=== PATIENT | male | born 2005 | race African-American/Black ===

== ENCOUNTER 2024-02-03 01:58 | Emergency (ER) | payer SELFPAY ==
[2024-02-03 02:06] VITALS: BP 121/58; PULSE 80; RESP 20; TEMP 37.1; O2SAT 97; BMI 21.6
[2024-02-03 02:50] LABS: MANUAL DIFF FLAG NO
[2024-02-03 02:52] LABS: Basophils Percent Auto 0.4 % (0-2); Eosinophils Percent Auto 0.1 % (0-4); Hematocrit 39.4 % (42.0-52.0); Hemoglobin 14.1 g/dl (14.0-18.0); Imm Gran Abs Auto 0.03 X10*3/uL (0.00-0.03); Imm Gran Pct Auto 0.4 % (0.0-0.4); Lymphocytes Absolute Auto 0.4 X10*3/uL (1.2-4.9); Lymphocytes Percent Auto 4.2 % (20-40); Mean Corpuscular HGB Conc 35.8 g/dl (31.0-36.0); Mean Corpuscular Hemoglobin 32.2 pg (27.0-33.0); Mean Platelet Volume 9.2 fL (9.4-12.4); Monocytes Absolute Auto 0.9 X10*3/uL (0.1-1.2); Monocytes Percent Auto 10.9 % (2-11); Neutrophils Absolute Auto 7.2 x10*3/uL (2.0-8.3); Platelet Count 206 X10*3/uL (160-400); Red Blood Count 4.38 X10*6/uL (4.60-5.80); Red Cell Distribution Width 12.2 % (11.0-16.0); White Blood Count 8.5 X10*3/uL (4.8-10.8)
--- NOTE | 2024-02-03 02:58 | PC.NURSE ---
Patient presents to ED from home for evaluation of diffuse abdominal pain 10/10 on 0/10 pain scale, nausea, 3 episodes of vomiting since 06:00 pm last night after eating. Patient changed into a hospital attire, 230 G IV line established in [facility], labs drawn and sent to lab. Patient oriented to ED room, call thakur placed within patient's reach.
[2024-02-03 03:05] LABS: Alanine Aminotransferase 11 U/L (0-40); Albumin Level 4.8 g/dL (3.5-5.0); Alkaline Phosphatase 50 U/L (39-117); Anion Gap 16 (12-20); Aspartate Amino Transferase 24 U/L (5-37); Bilirubin Total 0.8 mg/dL (0.0-1.0); Blood Urea Nitrogen 11 mg/dL (9-16); Calcium 9.8 mg/dL (8.4-10.2); Carbon Dioxide 24 mmol/L (22-29); Chloride 102 mmol/L (96-108); Creatinine Clr Calc Pharmacy 108.4; Estimated Glomerular Filt Rate > 60; Glucose Random 102 mg/dL (60-115); Lipase 11 U/L (8-78); Potassium 3.8 mmol/L (3.3-5.1); Sodium 138 mmol/L (135-145); Total Protein 7.3 g/dL (6.5-8.0)
[2024-02-03 03:32] LABS: Influenza A PCR NEGATIVE (Negative); Influenza B PCR NEGATIVE (Negative); Resp Syncy Virus RNA Qual PCR NEGATIVE (Negative); SARS COV2 PCR INHOUSE POSITIVE (Negative)
--- NOTE | 2024-02-03 05:26 | ED_ITS ---
HPI - General Adult General Chief complaint: General Medical Stated complaint: food poisoning? vomiting Time Seen by Provider: 02/03/24 05:26 History of Present Illness ED Provider: Yemi COMER narrative: the patient is a 18-year-old male who is from [place], [place]. He is currently involved withg a residential work program, [employer], which is housed on the campus of the [facility]. He comes to the emergency room because he became ill yesterday afternoon. Symptoms again with nausea and vomiting. Also abdominal pain and headache. Also a lot of body aches and chills. Symptoms began at around 18:00 earlier this evening. The patient has no significant past medical history. He is on no medications. He says that he has received 2 COVID vaccines in the past but none recently. Patient has had nausea and vomiting but no diarrhea. He reports the abdominal pain is generalized pain that does not localize to the right lower quadrant. The patient reports that another participant in his program recently tested positive for COVID. Related Data Allergies Allergy/AdvReac Type Severity Reaction Status Date / Time No Known Allergies Allergy Verified 02/03/24 02:09 Review of Systems 2 Review of Systems: Yes all other systems are reviewed and are negative [facility] Social History Social History Alcohol intake: never Smoked in Last 30 Days: No Substance Use Type: Marijuana Substance Use Frequency: Occasionally Advance Directives: No Advance Directives Information Provided: Yes Physical Exam ED Vital Signs: Vital Signs - 24 hr 02/03/24 02:06 02/03/24 05:39 Temperature 98.7 F 98.7 F Pulse Rate 80 69 Respiratory Rate 20 16 Blood Pressure 121/58 L 119/60 Pulse Oximetry 97 98 Oxygen Delivery Method Room Air Room Air BMI result Body Mass Index 21.6 Const Other: The patient is awake and alert. He has the appearance of a healthy and athletic 18-year-old. He did not appear in acute distress or discomfort. HENMT Head: Yes normal to inspection Face and sinus: Yes normal facial exam Mouth: Normal oral and palatal mucosa present Eyes General: appearance normal, both eyes and all related structures Conjunctivae: conjunctivae normal Pupils: Equal, round and reactive pupils present EOM: EOMs intact bilaterally Neck Neck: Yes full ROM, Yes no lymphadenopathy and Yes supple Resp Effort & Inspection: normal respiratory effort Auscultation: clear to auscultation bilaterally Cardio Rate: regular rate Rhythm: regular rhythm Heart sounds: S1 normal heart sound present and S2 normal heart sound present GI Other: the abdomen is flat, soft, and nontender. I could press quite deeply into the right lower quadrant without eliciting any tenderness. Skin Other: Skin is dry and unremarkable Neuro Other: the patient is awake and alert with normal mental status. Cranial nerves are grossly intact. He moves extremities normally and seems neurologically intact. Cranial nerves: Yes Equal, round and reactive pupils present Extrem Other: No peripheral edema Medications Administered Discontinued Medications Generic Name Dose Route Start Last Admin Trade Name Gareth PRN Reason Stop Dose Admin Acetaminophen 975 mg 02/03/24 06:42 02/03/24 07:13 Acetaminophen 325 Mg Tablet PO 02/03/24 06:43 975 mg ONCE ONE Administration Ketorolac Tromethamine 10 mg 02/03/24 04:56 02/03/24 05:37 Ketorolac Tromethamine 15 Mg/Ml Vial IVPUSH 02/03/24 04:57 10 mg ONCE ONE Administration Ondansetron HCl 4 mg 02/03/24 04:56 02/03/24 05:36 Ondansetron Hcl 4 Mg/2 Ml Vial IVPUSH 02/03/24 04:57 4 mg ONCE ONE Administration Medical Decision Making Medical Decision Making MDM Narrative: patient is a 18-year-old who presents with abdominal pain, nausea and vomiting. He also complains of a headache and generalized body aches. He has testing positive for COVID today. I feel his physical exam is not suggestive of any other process such as appendicitis. He was treated symptomatically with ketorolac and ondansetron. He will be discharged to be symptomatically treated for COVID. We contacted the [employer] and they agree that he can return to their program. The patient was then discharged. He should return if worse. Lab Data 02/03/24 02:46 02/03/24 02:46 Labs: Lab Results 02/03/24 Range/Units 02:46 WBC 8.5 (4.8-10.8) X10*3/uL RBC 4.38 L (4.60-5.80) X10*6/uL Hgb 14.1 (14.0-18.0) g/dl Hct 39.4 L (42.0-52.0) % MCV 90.0 (80.0-98.0) fL MCH 32.2 (27.0-33.0) pg MCHC 35.8 (31.0-36.0) g/dl RDW 12.2 (11.0-16.0) % Plt Count 206 (160-400) X10*3/uL MPV 9.2 L (9.4-12.4) fL Immature Gran % (Auto) 0.4 (0.0-0.4) % Neut % (Auto) 84.0 H (45-73) % Lymph % (Auto) 4.2 L (20-40) % [place] % (Auto) 10.9 (2-11) % Eos % (Auto) 0.1 (0-4) % Baso % (Auto) 0.4 (0-2) % Lymph # (Auto) 0.4 L (1.2-4.9) X10*3/uL [place] # (Auto) 0.9 (0.1-1.2) X10*3/uL Eos # (Auto) 0.0 (0.0-0.4) X10*3/uL Baso # (Auto) 0.0 (0.0-0.2) X10*3/uL Abs Immat Gran (auto) 0.03 (0.00-0.03) X10*3/uL Absolute Neuts (auto) 7.2 (2.0-8.3) x10*3/uL Absolute Nucleated RBC 0.000 (0.0-0.012) X10*3/uL Nucleated RBC % (auto) 0.0 (0.0-0.2) /100WBC Sodium 138 (135-145) mmol/L Potassium 3.8 (3.3-5.1) mmol/L Chloride 102 (96-108) mmol/L Carbon Dioxide 24 (22-29) mmol/L Anion Gap 16 (12-20) BUN 11 (9-16) mg/dL Creatinine 1.02 (0.5-1.4) mg/dL Estim Creat Clear Calc 108.4 Estimated GFR > 60 Random Glucose 102 (60-115) mg/dL Calcium 9.8 (8.4-10.2) mg/dL Total Bilirubin 0.8 (0.0-1.0) mg/dL AST 24 (5-37) U/L ALT 11 (0-40) U/L Alkaline Phosphatase 50 (39-117) U/L Total Protein 7.3 (6.5-8.0) g/dL Albumin 4.8 (3.5-5.0) g/dL Lipase 11 (8-78) U/L Influenza Type A (PCR) NEGATIVE (Negative) Influenza Type B (PCR) NEGATIVE (Negative) RSV RNA Qual (PCR) NEGATIVE (Negative) SARS-CoV-2 RNA (RT-PCR) POSITIVE A (Negative) Discharge Plan Discharge Clinical Impression: COVID, Abdominal pain with vomiting, Headache Patient Disposition: Home, Self-Care Additional Instructions: You tested positive for COVID today. I suspect that your other symptoms are probably related to this COVID infection. Please plan on resting and taking it easy for the next few days. You may use ibuprofen and acetaminophen as needed for discomfort. Try to drink lot of fluids. Return to the emergency room for another evaluation if you feel significantly worse, especially if you have worsening abdominal pain. Stand Alone Forms: Work/School Release Interventions: ED Discharge Assessment Last Done: 02/03/24 07:17 Discharge Date/Time: 02/03/24 07:18 Print Language: Vincentian
[2024-02-03] MEDS: ondansetron HCL 4 MG/2 ML VIAL IVPUSH (05:36)
[2024-02-03] MEDS: Ketorolac Tromethamine 15 MG/ML VIAL 10 MG IVPUSH (05:37)
[2024-02-03 05:39] VITALS: BP 119/60; PULSE 69; RESP 16; TEMP 37.1; O2SAT 98
--- NOTE | 2024-02-03 05:53 | PC.NURSE ---
RN spoke to security named Giselle from [employer] to make her aware of the pt's status and to ensure return is an option due to living quarters and patient's COVID+ status. Per Giselle she will make the director of consumer affairs medical team aware, she requested that the pt be sent back with all paperwork and restrictions/recommendations adding that they will provide the patient with a ride back. They can be reached [phone] (choose security option) when the pt is ready for discharge
[2024-02-03] MEDS: Acetaminophen 325 MG TABLET 975 MG PO (07:13)
[2024-02-03 07:17] VITALS: BP 120/63; PULSE 64; RESP 16; TEMP 36.7; O2SAT 97
== END 2024-02-03 07:18 | disposition home or self-care (01) ==
PROVIDERS: Emergency Provider Emergency Medicine
DX: U07.1 COVID-19 (principal); R10.9 Unspecified abdominal pain; R51.9 Headache, unspecified; R11.2 Nausea with vomiting, unspecified
CPT/HCPCS: 0241U; 36415; 80053; 83690; 85025; 96374; 96375; 99284; J1885; J2405

== ENCOUNTER 2024-03-22 04:43 | Emergency (ER) | payer MEDICAID, SELFPAY ==
--- NOTE | ~2024-03-22 | CT_ITS ---
CLINICAL HISTORY: abdominal pain CT abdomen and pelvis with contrast Comparison: CT - CT ABDOMEN PELVIS W IV CON - 03/22/24 07:58 EST Findings: The lung bases are clear. There is focal fatty infiltration adjacent to the falciform ligament. Subcentimeter right hepatic hypodensity is too small to characterize. The gallbladder, pancreas, spleen, bilateral adrenal glands, and bilateral kidneys appear within normal limits. Contrast is seen within bilateral renal collecting systems. There is no evidence of bowel obstruction. The appendix appears normal. There is no pneumoperitoneum or ascites. Small fat containing umbilical hernia is present. Pelvic contents unremarkable. No acute fracture. IMPRESSION: No acute abdominopelvic abnormality is identified. This document has been electronically signed by: Ethan Crystal on 03/22/2024 08:58:23
[2024-03-22 04:50] VITALS: BP 144/81; PULSE 79; RESP 18; TEMP 36.9; O2SAT 99; BMI 20.5
[2024-03-22 06:03] LABS: Basophils Percent Auto 0.3 % (0-2); Eosinophils Absolute Auto 0.1 X10*3/uL (0.0-0.4); Eosinophils Percent Auto 0.7 % (0-4); Hematocrit 41.6 % (42.0-52.0); Hemoglobin 14.9 g/dl (14.0-18.0); Imm Gran Abs Auto 0.03 X10*3/uL (0.00-0.03); Imm Gran Pct Auto 0.3 % (0.0-0.4); Lymphocytes Absolute Auto 0.5 X10*3/uL (1.2-4.9); Lymphocytes Percent Auto 5.3 % (20-40); MANUAL DIFF FLAG NO; Mean Corpuscular HGB Conc 35.8 g/dl (31.0-36.0); Mean Corpuscular Hemoglobin 31.7 pg (27.0-33.0); Mean Corpuscular Volume 88.5 fL (80.0-98.0); Monocytes Absolute Auto 0.4 X10*3/uL (0.1-1.2); Monocytes Percent Auto 3.7 % (2-11); Neutrophils Absolute Auto 8.6 x10*3/uL (2.0-8.3); Neutrophils Percent Auto 89.7 % (45-73); Platelet Count 253 X10*3/uL (160-400); Red Cell Distribution Width 12.3 % (11.0-16.0); White Blood Count 9.6 X10*3/uL (4.8-10.8)
[2024-03-22 06:21] LABS: Alanine Aminotransferase 24 U/L (0-40); Albumin Level 4.7 g/dL (3.5-5.0); Alkaline Phosphatase 57 U/L (39-117); Anion Gap 11 (12-20); Aspartate Amino Transferase 65 U/L (5-37); Bilirubin Total 0.8 mg/dL (0.0-1.0); Blood Urea Nitrogen 11 mg/dL (9-16); Calcium 9.4 mg/dL (8.4-10.2); Carbon Dioxide 23 mmol/L (22-29); Chloride 110 mmol/L (96-108); Creatinine Clr Calc Pharmacy 117.7; Estimated Glomerular Filt Rate > 60; Glucose Random 77 mg/dL (60-115); Potassium 3.9 mmol/L (3.3-5.1); Sodium 140 mmol/L (135-145); Total Protein 7.3 g/dL (6.5-8.0)
[2024-03-22 06:43] LABS: Influenza A PCR NEGATIVE (Negative); Influenza B PCR NEGATIVE (Negative); Resp Syncy Virus RNA Qual PCR NEGATIVE (Negative); SARS COV2 PCR INHOUSE NEGATIVE (Negative)
--- NOTE | 2024-03-22 07:24 | ED_ITS ---
HPI - Abdominal Pain General Chief Complaint: Abdominal Pain Stated Complaint: stomach pain, n/v Time Seen by Provider: 03/22/24 07:20 Source: patient Limitations: no limitations History of Present Illness HPI narrative: This is a 18 years old the patient with no significant past medical history here with a chief complain of abdominal pain pain is localized in the upper abdomen without radiation he has also nausea vomiting and diarrhea. He has a that he never had any abdominal surgery before. Denies also any fever. He has pain is improving at this time MD elicited complaint: abdominal pain Pertinent past history: none Onset (ago): day(s) (1) Pain Consistency: now resolved Location: epigastric Severity: mild Quality: cramping Radiation: none Migration to: no migration Exacerbating factors: nothing Relieving factors: nothing Related Data Previous Rx's ?Medication ?Instructions ?Recorded omeprazole magnesium 10 mg oral 20 mg PO DAILY #30 ea 03/22/24 suspension,delayed release (Prilosec) ondansetron 4 mg disintegrating 4 mg PO Q8H 4 days #12 tabs 03/22/24 tablet Allergies Allergy/AdvReac Type Severity Reaction Status Date / Time No Known Allergies Allergy Verified 03/22/24 04:54 Review of Systems Reports system reviewed and no additional complaints, except as documented Gastrointestinal: Reports no additional gastrointestinal complaints REPLACED BY [facility] Past Medical History REPLACED BY [facility] Narrative: demies Social History Social History Alcohol intake: never Substance Use Type: Marijuana Advance Directives: No Advance Directives Information Provided: Yes Do you have a plan to hurt others: No Plan Physical Exam ED Vital Signs: Vital Signs - 24 hr 03/22/24 04:50 03/22/24 07:44 Temperature 98.5 F 98.5 F Pulse Rate 79 77 Respiratory Rate 18 18 Blood Pressure 144/81 H 131/63 Pulse Oximetry 99 95 Oxygen Delivery Method Room Air Room Air BMI result Body Mass Index 20.5 He looks well no distress not toxic appearing Const Orientation/consciousness: patient oriented x3 HENMT Head: Yes normal to inspection Ears: hearing grossly normal bilaterally Face and sinus: Yes normal facial exam Mouth: Normal oral and palatal mucosa present Throat: Yes posterior oropharynx normal Neck Neck: Yes normal visual inspection, Yes full ROM and Yes no lymphadenopathy Chest Chest palpation & inspection: normal inspection of the chest Resp Effort & Inspection: normal respiratory effort Auscultation: clear to auscultation bilaterally Cardio Jugular venous distension: no JVD Rate: regular rate Rhythm: regular rhythm GI Inspection: Yes normal to inspection Palpation (GI): Soft to palpation, not firm, nontender and no guarding Auscultation: normal bowel sounds Skin General skin exam: no rashes or lesions noted, elasticity normal and turgor normal Lesions: no lesions Rashes: no rashes Wounds: no wounds Neuro General: patient oriented x3 Course Reevaluation(s) Reevaluation #1: On re-examination is feeling much better his labs within normal limits CT scan of the abdomen is normal anticipate discharge Time: 10:12 Medical Decision Making Medical Decision Making [facility] Narrative: Patient presented to the emergency department with abdominal pain we will obtain lab work Differential Diagnosis Differential Diagnoses: The differential diagnosis associated with the presentation includes Differential diagnosis include peptic ulcer disease/ pancreatitis/ gastric Admission/Observation Consideration of admission/observation: Escalation of care including admission/observation considered Lab Data MDM Lab Attestation statement: I reviewed the patient's lab results. 03/22/24 05:57 03/22/24 05:57 Labs: Lab Results 03/22/24 Range/Units 05:57 WBC 9.6 (4.8-10.8) X10*3/uL RBC 4.70 (4.60-5.80) X10*6/uL Hgb 14.9 (14.0-18.0) g/dl Hct 41.6 L (42.0-52.0) % MCV 88.5 (80.0-98.0) fL MCH 31.7 (27.0-33.0) pg MCHC 35.8 (31.0-36.0) g/dl RDW 12.3 (11.0-16.0) % Plt Count 253 (160-400) X10*3/uL MPV 10.0 (9.4-12.4) fL Immature Gran % (Auto) 0.3 (0.0-0.4) % Neut % (Auto) 89.7 H (45-73) % Lymph % (Auto) 5.3 L (20-40) % [place] % (Auto) 3.7 (2-11) % Eos % (Auto) 0.7 (0-4) % Baso % (Auto) 0.3 (0-2) % Lymph # (Auto) 0.5 L (1.2-4.9) X10*3/uL [place] # (Auto) 0.4 (0.1-1.2) X10*3/uL Eos # (Auto) 0.1 (0.0-0.4) X10*3/uL Baso # (Auto) 0.0 (0.0-0.2) X10*3/uL Abs Immat Gran (auto) 0.03 (0.00-0.03) X10*3/uL Absolute Neuts (auto) 8.6 H (2.0-8.3) x10*3/uL Absolute Nucleated RBC 0.000 (0.0-0.012) X10*3/uL Nucleated RBC % (auto) 0.0 (0.0-0.2) /100WBC Sodium 140 (135-145) mmol/L Potassium 3.9 (3.3-5.1) mmol/L Chloride 110 H (96-108) mmol/L Carbon Dioxide 23 (22-29) mmol/L Anion Gap 11 L (12-20) BUN 11 (9-16) mg/dL Creatinine 0.89 (0.5-1.4) mg/dL Estim Creat Clear Calc 117.7 Estimated GFR > 60 Random Glucose 77 (60-115) mg/dL Calcium 9.4 (8.4-10.2) mg/dL Total Bilirubin 0.8 (0.0-1.0) mg/dL AST 65 H (5-37) U/L ALT 24 (0-40) U/L Alkaline Phosphatase 57 (39-117) U/L Total Protein 7.3 (6.5-8.0) g/dL Albumin 4.7 (3.5-5.0) g/dL Lipase 15 (8-78) U/L Influenza Type A (PCR) NEGATIVE (Negative) Influenza Type B (PCR) NEGATIVE (Negative) RSV RNA Qual (PCR) NEGATIVE (Negative) SARS-CoV-2 RNA (RT-PCR) NEGATIVE (Negative) Radiology Impression Discussion of test interpretation with radiology: I have reviewed the radiologist's reading. Medications Administered Discontinued Medications Generic Name Dose Route Start Last Admin Trade Name Freq PRN Reason Stop Dose Admin Sodium Chloride 1,000 mls @ 999 mls/hr 03/22/24 07:30 03/22/24 08:56 Ns IVCONT 03/22/24 08:30 Infused .Q1H1M NATACHA Infusion Iohexol 100 ml 03/22/24 08:39 03/22/24 08:39 Iohexol 350 Mg/Ml 100 Ml Infus..Btl IV 03/22/24 08:40 85 ml ONCE ONE Administration Metoclopramide HCl 10 mg 03/22/24 07:23 03/22/24 07:42 Metoclopramide Hcl 10 Mg/2 Ml Vial IVPUSH 03/22/24 07:24 10 mg ONCE ONE Administration Pantoprazole Sodium 40 mg 03/22/24 07:23 03/22/24 07:42 Pantoprazole Sodium 40 Mg/10 Ml Vial IVPUSH 03/22/24 07:24 40 mg ONCE ONE Administration Discharge Plan Discharge Clinical Impression: Abdominal pain Qualifiers: Abdominal location: generalized Qualified Code(s): R10.84 - Generalized abdominal pain Patient Disposition: Home, Self-Care Instructions: Abdominal Pain (ED) Additional Instructions: Stay on liquid diet for 24 hour, take Prilosec as directed also Zofran as needed for nausea, return to the emergency room if you feeling worse any concern Prescriptions: New ondansetron 4 mg tablet,disintegrating 4 mg PO Q8H 4 Days Qty: 12 0RF Prilosec 10 mg susp,delayed release for recon 20 mg PO DAILY Qty: 30 0RF Print Language: Armenian
[2024-03-22] MEDS: 0.9 % Sodium Chloride 1,000 ML 999 ML IVCONT (07:42)
[2024-03-22] MEDS: Metoclopramide HCl 10 MG/2 ML VIAL IVPUSH (07:42)
[2024-03-22] MEDS: Pantoprazole Sodium 40 MG/10 ML VIAL IVPUSH (07:42)
[2024-03-22 07:44] VITALS: BP 131/63; PULSE 77; RESP 18; TEMP 36.9; O2SAT 95
[2024-03-22 07:44] LABS: Lipase 15 U/L (8-78)
[2024-03-22] MEDS: iohexoL 350 MG/ML 100 ML INFUS..BTL IV (08:39)
[2024-03-22 10:00] VITALS: BP 120/78; PULSE 65; RESP 17; TEMP 36.9; O2SAT 96
[2024-03-22 10:37] VITALS: BP 120/78; PULSE 65; RESP 18; TEMP 36.9; O2SAT 96
== END 2024-03-22 10:38 | disposition home or self-care (01) ==
PROVIDERS: Emergency Provider Emergency Medicine
DX: R10.2 Pelvic and perineal pain (principal); R11.2 Nausea with vomiting, unspecified; R10.84 Generalized abdominal pain; Z03.818 Encounter for observation for suspected exposure to other biological agents ruled out; Z79.899 Other long term (current) drug therapy
CPT/HCPCS: 0241U; 36415; 74177; 80053; 83690; 85025; 96361; 96374; 96375; 99284; J2470; J2765; Q9967

== ENCOUNTER → 2024-03-22 07:23 | Outpatient (BNV) | payer SELFPAY | PROVIDERS: Emergency Provider Emergency Medicine; Visit Provider Radiology Vascular & Interventional Radiology | DX: R10.9 Unspecified abdominal pain (principal) | CPT/HCPCS: 74177 ==

== ENCOUNTER 2024-10-09 11:55 | Emergency (ER) | payer MEDICAID, SELFPAY ==
--- NOTE | ~2024-10-09 | XR_ITS ---
EXAMINATION: XR HAND, RIGHT CLINICAL INFORMATION: injury, pain swelling over 4th/5th MCP COMPARISON: None available. TECHNIQUE: PA, lateral, and oblique views of the right hand. FINDINGS: The bones and soft tissues are normal. No fracture. Alignment is anatomic. Joint spaces are maintained. No erosions or soft tissue calcifications. XR/XR hand RT min 3V IMPRESSION: Unremarkable right hand. Electronically signed by: Amandeep Abel MD 10/09/2024 01:02 PM EDT
[2024-10-09 12:15] VITALS: BP 146/75; PULSE 78; RESP 18; TEMP 36.3; O2SAT 99; BMI 21.1
--- NOTE | 2024-10-09 12:15 | ED.UPPEXIN ---
HPI - Extremity Injury (Upper) General Chief Complaint: Extremity Injury, Upper Stated Complaint: R hand injury Time Seen by Provider: 10/09/24 12:17 Source: patient Mode of arrival: ambulatory Limitations: no limitations History of Present Illness ED Provider: omar matthews np HPI narrative: Patient is a 19-year-old male who presents emergency department for evaluation he is right-hand dominant reports that he punched a door prior to arrival resulting in localized pain and swelling over the 4th and 5th metacarpal. Denies any prior injury to the same. No numbness tingling a cold sensation to the hand. No associated wrist pain. Related Data Previous Rx's ?Medication ?Instructions ?Recorded omeprazole magnesium 10 mg oral 20 mg PO DAILY #30 ea 03/22/24 suspension,delayed release (Prilosec) ondansetron 4 mg disintegrating 4 mg PO Q8H 4 days #12 tabs 03/22/24 tablet Allergies Allergy/AdvReac Type Severity Reaction Status Date / Time No Known Allergies Allergy Verified 10/09/24 12:17 Review of Systems Review of Systems: Yes all other systems are reviewed and are negative PMFSH Past Medical History Attestation statement: The following information was validated with the patient. Source: old records reviewed Social History Social History Alcohol intake: never Substance Use Type: Marijuana Advance Directives: No Advance Directives Information Provided: No Do you have a plan to hurt others: No Plan Physical Exam Vital Signs: Vital Signs: Last Vital Signs Temp 97.3 F 10/09/24 12:15 Pulse 78 10/09/24 12:15 Resp 18 10/09/24 12:15 BP 146/75 H 10/09/24 12:15 Pulse Ox 99 10/09/24 12:15 O2 Del Method Room Air 10/09/24 12:15 BMI result Body Mass Index 21.1 Appearance: Alert.?Oriented to person, place and time. No acute distress.?Normal affect.? CVS: Heart sounds normal. Normal heart rate and rhythm.? Pulses normal.?? Respiratory: No respiratory distress.? Lung sounds clear to auscultation bilaterally?? Skin: Skin warm and dry.? Normal skin color.? Extremities: No lower extremity edema. Right hand with localized swelling and tenderness upon palpation over the MCP. No obvious deformity. Full range of motion to the digits and of the wrist. Neuro: Moves all extremities spontaneously. Sensation intact bilaterally. Ambulates with normal steady gait. Medical Decision Making Medical Decision Making MDM Narrative: Patient is a 19-year-old male who presents emergency department for evaluation of traumatic right hand pain after punching a door as per HPI. Localized swelling over the right 4th and 5th metacarpal. XR was obtained no fracture or dislocation. Will treat with conservative measures, advised outpatient follow-up with primary care provider return precautions. Differential Diagnosis Differential Diagnoses: The differential diagnosis associated with the presentation includes (Fracture, dislocation, contusion, sprain) Independent Interpretation I performed an independent interpretation of an: Plain X-Ray (No acute fracture dislocation) Radiology Impression Discussion of test interpretation with radiology: I have reviewed the radiologist's reading. Radiologist Impression: XR/XR hand RT min 3V IMPRESSION: Unremarkable right hand. Discharge Plan Discharge Clinical Impression: Hand sprain Qualifiers: Encounter type: initial encounter Laterality: right Qualified Code(s): S63.91XA - Sprain of unspecified part of right wrist and hand, initial encounter Patient Disposition: Home, Self-Care Instructions: Sprain (ED), How to Use an Elastic Bandage (ED) Additional Instructions: X-ray does not show evidence of anything broken or dislocated which is reassuring. Apply ice for 10-15 minutes 4-6 times daily. Use elastic bandage as provided for compression to the hand. Elevate the hand above the level of your chest. You can take ibuprofen 200 mg, 3 tablets (600mg) every 6-8 hours as needed for pain, in addition to Tylenol 500 mg, 2 tablets (1,000mg) every 4-6 hours as needed for pain, but not to exceed 3 doses daily (3,000mg).? Follow-up with your primary care doctor with any new or worsening symptoms or concerns. Prescriptions: No Action ondansetron 4 mg tablet,disintegrating 4 mg PO Q8H 4 Days Qty: 12 0RF Prilosec 10 mg susp,delayed release for recon 20 mg PO DAILY Qty: 30 0RF Referrals: Physician,None [Primary Care Provider, Medical] Print Language: Peruvian
[2024-10-09 13:56] VITALS: BP 143/63; PULSE 60; RESP 18; TEMP 36.6; O2SAT 99
== END 2024-10-09 13:59 | disposition home or self-care (01) ==
PROVIDERS: Emergency Provider Emergency Medicine Emergency Medical Services
DX: S63.91XA Sprain of unspecified part of right wrist and hand, initial encounter (principal); M79.641 Pain in right hand; X58.XXXA Exposure to other specified factors, initial encounter; Y93.9 Activity, unspecified; Y92.9 Unspecified place or not applicable; Y99.9 Unspecified external cause status
CPT/HCPCS: 73130; 99282; 99283

== ENCOUNTER → 2024-10-09 12:17 | Outpatient (BNV) | payer SELFPAY | PROVIDERS: Emergency Provider Emergency Medicine Emergency Medical Services; Visit Provider Radiology Diagnostic Radiology | DX: M25.541 Pain in joints of right hand (principal) | CPT/HCPCS: 73130 ==

== ENCOUNTER 2024-10-26 00:25 | Inpatient (IN) | payer MEDICAID, SELFPAY ==
[2024-10-26 00:47] VITALS: BP 124/64; PULSE 58; RESP 16; O2SAT 96; BMI 25.1
--- NOTE | 2024-10-26 00:54 | PC.NURSE ---
Grandmother [phone]
--- NOTE | 2024-10-26 00:54 | PC.NURSE ---
Pt changing over in the family room with security.
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
--- NOTE | 2024-10-26 02:49 | PC.NURSE ---
Pt ambulating to the bathroom, calm/cooperative and able to follow directions. ENG obtained and sent.
[2024-10-26 03:03] LABS: Cannabinoid Screen Urine POSITIVE (Not Detect)
--- NOTE | 2024-10-26 06:01 | PC.NURSE ---
Grandmother returning t/ws call. Per grandmother, pt lived with her prior to moving to school at [employer]. Per grandmother (Jennifer Woods) unknown if pt has a psychiatric hx, she stated he used to be in therapy but hasn't been for a while, no official diagnosis was made. Grandmother uncertain about drugs/alcohol. Per grandmother, pt is unable to return to her home. Grandmother advising t/w to contact his mother (Mell in [place]) or father (Radha in [place]) but states she does not have a phone number for either parent.
[2024-10-26 07:19] VITALS: BP 149/83; PULSE 62; RESP 17; TEMP 36.8; O2SAT 99
--- NOTE | 2024-10-26 07:48 | PC.NURSE ---
Pt resting quietly in [facility] bed. Sitter present. Changed over by security. VSS. Plan of care ongoing
[2024-10-26 09:12] LABS: MANUAL DIFF FLAG NO
[2024-10-26 09:14] LABS: Hematocrit 42.5 % (42.0-52.0); Hemoglobin 15.0 g/dl (14.0-18.0); Imm Gran Abs Auto 0.03 X10*3/uL (0.00-0.03); Imm Gran Pct Auto 0.2 % (0.0-0.4); Lymphocytes Absolute Auto 1.5 X10*3/uL (1.2-4.9); Mean Corpuscular HGB Conc 35.3 g/dl (31.0-36.0); Mean Corpuscular Hemoglobin 32.1 pg (27.0-33.0); Mean Corpuscular Volume 90.8 fL (80.0-98.0); NRBC Abs Auto 0.000 X10*3/uL (0.0-0.012); NRBC Pct Auto 0.0 /100WBC (0.0-0.2); Platelet Count 232 X10*3/uL (160-400); Red Blood Count 4.68 X10*6/uL (4.60-5.80); White Blood Count 12.1 X10*3/uL (4.8-10.8)
[2024-10-26 09:48] LABS: Alanine Aminotransferase 26 U/L (0-40); Albumin Level 5.2 g/dL (3.5-5.0); Alkaline Phosphatase 67 U/L (39-117); Anion Gap 17 (12-20); Aspartate Amino Transferase 60 U/L (5-37); Blood Urea Nitrogen 19 mg/dL (9-16); Calcium 9.5 mg/dL (8.4-10.2); Carbon Dioxide 22 mmol/L (22-29); Chloride 105 mmol/L (96-108); Creatinine Clr Calc Pharmacy 99.0; Estimated Glomerular Filt Rate > 60; Potassium 4.6 mmol/L (3.3-5.1); Sodium 139 mmol/L (135-145); Total Protein 7.9 g/dL (6.5-8.0)
--- NOTE | 2024-10-26 10:29 | PC.NURSE ---
Pt with Care Team to discuss POC
--- NOTE | 2024-10-26 11:50 | PC.NURSE ---
Report given to Marline CARVALHO in Pod. Security to escort pt to Pod.
--- NOTE | 2024-10-26 12:02 | PC.NURSE ---
no belongings list created by previous shift. patient's belongings noted to be in [facility] port shelf #3. belongings list created. pt moved to [facility] w/o difficulty. calm/cooperative.
[2024-10-26 12:09] LABS: Appearance Urine Clear; Glucose Urine UA Negative (Negative); PH 5.5 (5.0-9.0); Specific Gravity - Urine >= 1.030 (1.005-1.025); UMIC TRIGGER UA YES
--- NOTE | 2024-10-26 12:42 | MHC.CARE ---
Patient evaluated by the CARE Team, disposition inpatient psychiatric treatment. Dr. Ford updated and in agreement with plan.
--- NOTE | 2024-10-26 12:57 | PC.NURSE ---
Pt has been moved from the ED today BH 8, pt initially agitated about being here still, inquiring when he will be discharged. pt went to sleep but then went to the bathroom and was heard getting into the shower. Pt was also heard punching the wall in the bathroom but when asked if he needed any help, pt stated that he was okay
--- NOTE | 2024-10-26 13:31 | PC.NURSE ---
Addendum entered by Marisol Armstrong RN 10/26/24 13:42: pt returned to bathroom and put on his clothes without staff prompting him to, pt then apologized to this RN and returned to his room Original Note: Pt exited bathroom with towel around waist and head, refusing to wear clothing, this RN encouraged patient to wear pants at minimum to which patient refused. Pt was moved to private room [facility] and provided with food. pt remains wrapped in a towel and blanket at this time, sitting in the edge of his bed. Pt is adamantly refusing any PO medications stating I don't need none of that, it ain't for me . this RN attempted to educate pt that the medications being offered are to help him calm down, pt continues to refuse
--- NOTE | 2024-10-26 15:17 | PC.NURSE ---
Pt continues to be intermittently intrusive into other patient's rooms and conversations. pt is easily redirectable at this time
--- NOTE | 2024-10-26 15:47 | PC.NURSE ---
Pt now sitting in common area with other patients watching TV
--- NOTE | 2024-10-26 15:49 | PHA.MEDREC ---
Addendum entered by Geovanna Ch RPh 10/26/24 16:08: [facility] reviewed Original Note: Pharmacy Consult ? Medication Reconciliation Pharmacy verified med rec done by nursing. No Known Home Meds confirmed; spoke with pt and he confirmed he is not taking any medications at this time.
[2024-10-26 17:40] VITALS: BP 156/73; PULSE 69; RESP 20; TEMP 36.7; O2SAT 99
--- NOTE | 2024-10-26 18:06 | PC.NURSE ---
Pt continually interrupting other patient's conversations, taking shirt off. Able to be verbally redirected at this time
--- NOTE | 2024-10-26 19:25 | PC.NURSE ---
assumed care for pt at 1900. pt awake and alert in room, sitting on bed in no notable distress. pts needs met at this time. plan of care ongoing
[2024-10-27 06:00] VITALS: RESP 14
--- NOTE | 2024-10-27 07:01 | PC.NURSE ---
Assumed care of patient at 0645, patient appears to be sleeping, respirations even and unlabored, no apparent distress is noted. Continue plan of care for IPLOC
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
--- NOTE | 2024-10-27 16:30 | PC.NURSE ---
Pt signed a 3 day 10/27/24, up om Saturday10/30/24
[2024-10-27 16:42] VITALS: BP 136/84; PULSE 106; RESP 18; TEMP 36.8; O2SAT 99
[2024-10-27 16:43] VITALS: BMI 19.1
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
[2024-10-27 20:00] VITALS: BP 115/61; PULSE 67; RESP 16; TEMP 36.2; O2SAT 99
[2024-10-28 08:00] VITALS: BP 147/95; PULSE 109; RESP 16; TEMP 36.4; O2SAT 100
--- NOTE | 2024-10-28 14:49 | HO.PSYCHPN ---
Subjective Subjective Date of Service: 10/28/24 Reason For Visit: Behavioral Subjective Notes: 3 Day Interim History: Keeping to self. napping during the day. Guarded. Patient reports feeling alright ; he reports he has been keeping busy by reading the Bible. denies any side effects from starting Risperidal. denies SI/HI/VH/AH. Encouraged to attend groups. Continue current tx plan. Medication Compliance: Yes Side effects from medications: No Attending Groups: No Mental Status Exam Mental Status Exam Narrative: Pt is alert and oriented; behavior is cooperative and calm, guarded; dressed in casual attire; mood is described as fine ; eye contact appropriate; Speech is normal rate, volume and not pressured; thought process is organized; Thought content is on discharge; did not make any delusional statements during assessment today; denies SI/HI/VH/AH. Diagnostics Vital Signs (24Hr): Vital Signs - 24 hr 10/27/24 16:42 10/27/24 20:00 10/28/24 08:00 Temperature 98.3 F 97.2 F 97.6 F Pulse Rate 106 H 67 109 H Respiratory Rate 18 16 16 Blood Pressure 136/84 115/61 147/95 H Pulse Oximetry 99 99 100 Oxygen Delivery Method Room Air Room Air Room Air BMI result Body Mass Index 19.1 Labs 10/26/24 09:09 10/26/24 09:09 Medications Medications Current Medications Acetaminophen (Acetaminophen 325 Mg Tablet) 650 mg PO Q6H PRN PRN Reason: Headache/Pain, Scale 1-10 Al Hydroxide/Mg Hydroxide (Magnesium Hydrox/Alum Hydrox 30 Ml Oral.Susp) 30 ml PO Q6H PRN PRN Reason: Heartburn/Nausea Hydroxyzine HCl (Hydroxyzine Hcl 25 Mg Tablet) 25 mg PO Q6H PRN PRN Reason: mild anxiety Magnesium Hydroxide (Milk Of Magnesia 30 Ml Oral.Susp) 30 ml PO DAILY PRN PRN Reason: Constipation Nicotine Polacrilex (Nicotine Polacrilex 2 Mg Gum) 4 mg BUCCAL Q2H PRN PRN Reason: Nicotine Cravings Olanzapine (Olanzapine 5 Mg Tablet) 5 mg PO Q4H PRN PRN Reason: agitation Risperidone (Risperidone 1 Mg Tablet) 1 mg PO BID NATACHA Last Admin: 10/28/24 08:49 Dose: 1 mg Trazodone HCl (Trazodone Hcl 50 Mg Tablet) 50 mg PO BEDTIME MRX1 PRN PRN Reason: Insomnia Allergies Allergies Allergy/AdvReac Type Severity Reaction Status Date / Time No Known Allergies Allergy Verified 10/26/24 00:55 Assessment & Plan Assessment & Plan (1) Psychoactive substance-induced psychosis: Status: Acute Code(s): F19.959 - Other psychoactive substance use, unspecified with psychoactive substance-induced psychotic disorder, unspecified Plan Patient is a 19-year-old male who presented to [facility] [place] [facility] via ambulance after becoming aggressive with [employer] staff, which is uncharacteristic behavior for patient. Plan: CV 15 minute safety checks Start: Risperdal 1mg PO BID Obtain collateral Encourage groups Referral to outpatient psychiatric providers Discharge planning 10/28: Keeping to self. napping during the day. Guarded. Patient reports feeling alright ; he reports he has been keeping busy by reading the Bible. denies any side effects from starting Risperidal. denies SI/HI/VH/AH. Encouraged to attend groups. Continue current tx plan. Patient educated on: diagnosis and medication risk/benefits Reason for continued inpatient stay Substantial Risk for: med/psych decompensation Time Spent With Patient Time: Total time managing care of this patient today _15___ minutes.
[2024-10-28 19:20] VITALS: BP 132/93; PULSE 77; RESP 16; TEMP 36.8; O2SAT 99
[2024-10-29 07:00] VITALS: BMI 19.3
[2024-10-29 07:48] VITALS: BP 152/69; PULSE 100; RESP 18; TEMP 36.8; O2SAT 99
[2024-10-29 09:28] LABS: Alanine Aminotransferase 43 U/L (0-40); Albumin Level 4.8 g/dL (3.5-5.0); Alkaline Phosphatase 65 U/L (39-117); Anion Gap 13 (12-20); Aspartate Amino Transferase 40 U/L (5-37); Blood Urea Nitrogen 14 mg/dL (9-16); Calcium 9.5 mg/dL (8.4-10.2); Carbon Dioxide 25 mmol/L (22-29); Chloride 105 mmol/L (96-108); Cholesterol 181 mg/dL (<200); Creatinine Clr Calc Pharmacy 80.4; Estimated Glomerular Filt Rate > 60; HDL Cholesterol 56 mg/dL (>40); Potassium 3.6 mmol/L (3.3-5.1); Sodium 139 mmol/L (135-145); Total Protein 7.4 g/dL (6.5-8.0); Triglycerides 57 mg/dL (<150)
[2024-10-29 09:35] LABS: Hemoglobin A1C 156.8816 umol/L; Total Hemoglobin (HGBA1C) 4180.6112 umol/L
--- NOTE | 2024-10-29 12:53 | HO.PSYCHPN ---
Subjective Subjective Date of Service: 10/29/24 Reason For Visit: Behavioral Subjective Notes: Conditional Voluntary Interim History: Patient reports feeling alright ; he does not believe he should be in the hospital; pt stated, I got a lot of things to do. 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 Patient reports he spoke with his grandmother and plans on staying with his mother in [place]. denies SI/HI/VH/AH. Pt reports he is no longer hearing God's voice. pt retracted 3 day notice. Start: Depakote ER 750mg PO bedtime; risks/benefits reviewed. Increase Risperidal to 2mg PO bedtime and 1mg PO daily. Medication Compliance: Yes Side effects from medications: No Attending Groups: No Mental Status Exam Mental Status Exam Narrative: Pt is alert and oriented; behavior is cooperative and calm, guarded; dressed in casual attire; mood is described as fine ; eye contact appropriate; Speech is normal rate, volume and not pressured; thought process is organized; Thought content is on discharge; denies SI/HI/VH/AH. Diagnostics Vital Signs (24Hr): Vital Signs - 24 hr 10/28/24 19:20 10/29/24 07:48 Temperature 98.2 F 98.3 F Pulse Rate 77 100 Respiratory Rate 16 18 Blood Pressure 132/93 H 152/69 H Pulse Oximetry 99 99 Oxygen Delivery Method Room Air Room Air BMI result Body Mass Index 19.3 Labs 10/26/24 09:09 10/29/24 08:44 Labs: Laboratory Results - last 48 hr 10/29/24 08:44 Sodium 139 Potassium 3.6 D Chloride 105 Carbon Dioxide 25 Anion Gap 13 BUN 14 Creatinine 1.22 Estim Creat Clear Calc 80.4 Estimated GFR > 60 Random Glucose 110 Estimat Average Glucose 114 Hemoglobin A1c % 5.6 Calcium 9.5 Total Bilirubin 1.4 H AST 40 H ALT 43 H Alkaline Phosphatase 65 Total Protein 7.4 Albumin 4.8 Triglycerides 57 Cholesterol 181 LDL Cholesterol, Calc 114 H HDL Cholesterol 56 Medications Medications Current Medications Acetaminophen (Acetaminophen 325 Mg Tablet) 650 mg PO Q6H PRN PRN Reason: Headache/Pain, Scale 1-10 Al Hydroxide/Mg Hydroxide (Magnesium Hydrox/Alum Hydrox 30 Ml Oral.Susp) 30 ml PO Q6H PRN PRN Reason: Heartburn/Nausea Divalproex Sodium (Divalproex Sodium Er 250 Mg Tab.Er.24h) 750 mg PO BEDTIME NATACHA Hydroxyzine HCl (Hydroxyzine Hcl 25 Mg Tablet) 25 mg PO Q6H PRN PRN Reason: mild anxiety Last Admin: 10/28/24 23:14 Dose: 25 mg Magnesium Hydroxide (Milk Of Magnesia 30 Ml Oral.Susp) 30 ml PO DAILY PRN PRN Reason: Constipation Nicotine Polacrilex (Nicotine Polacrilex 2 Mg Gum) 4 mg BUCCAL Q2H PRN PRN Reason: Nicotine Cravings Olanzapine (Olanzapine 5 Mg Tablet) 5 mg PO Q4H PRN PRN Reason: agitation Last Admin: 10/28/24 23:14 Dose: 5 mg Risperidone (Risperidone 1 Mg Tablet) 1 mg PO DAILY NATACHA Risperidone (Risperidone 2 Mg Tablet) 2 mg PO BEDTIME NATACHA Trazodone HCl (Trazodone Hcl 50 Mg Tablet) 50 mg PO BEDTIME MRX1 PRN PRN Reason: Insomnia Last Admin: 10/28/24 23:14 Dose: 50 mg Allergies Allergies Allergy/AdvReac Type Severity Reaction Status Date / Time No Known Allergies Allergy Verified 10/26/24 00:55 Assessment & Plan Assessment & Plan (1) Psychoactive substance-induced psychosis: Status: Acute Code(s): F19.959 - Other psychoactive substance use, unspecified with psychoactive substance-induced psychotic disorder, unspecified Plan Patient is a 19-year-old male who presented to [facility] [place] [place] [facility] via ambulance after becoming aggressive with [employer] staff, which is uncharacteristic behavior for patient. Plan: CV 15 minute safety checks Start: Risperdal 1mg PO BID Obtain collateral Encourage groups Referral to outpatient psychiatric providers Discharge planning 10/28: Keeping to self. napping during the day. Guarded. Patient reports feeling alright ; he reports he has been keeping busy by reading the Bible. denies any side effects from starting Risperidal. denies SI/HI/VH/AH. Encouraged to attend groups. Continue current tx plan. 10/29: Patient reports feeling alright ; he does not believe he should be in the hospital; pt stated, I got a lot of things to do. 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 Patient reports he spoke with his grandmother and plans on staying with his mother in [place]. denies SI/HI/VH/AH. Pt reports he is no longer hearing God's voice. pt retracted 3 day notice. Start: Depakote ER 750mg PO bedtime; risks/benefits reviewed. Increase Risperidal to 2mg PO bedtime and 1mg PO daily. Patient educated on: diagnosis and medication risk/benefits Reason for continued inpatient stay Substantial Risk for: med/psych decompensation Time Spent With Patient Time: Total time managing care of this patient today _20___ minutes.
[2024-10-29 19:35] VITALS: BP 134/82; PULSE 108; RESP 16; TEMP 36.8; O2SAT 96
[2024-10-29] MEDS: Divalproex Sodium ER 250 MG TAB.ER.24H 750 MG PO (21:00)
[2024-10-30 07:41] VITALS: BP 136/75; PULSE 70; RESP 18; TEMP 36.3; O2SAT 100
--- NOTE | 2024-10-30 09:20 | P.PNPSI_ITS ---
Subjective Subjective Date of Service: 10/30/24 Reason For Visit: Behavioral Subjective Notes: Conditional Voluntary Interim History: Tearful. Patient reports feeling sad today; pt stated, I think I'm bipolar because I go from being happy then sad then angry. I understand you guys are trying to help me. I feel like I was going through an episode or I smoked the wrong thing . denies SI/HI/VH/AH. Pt reports he is no longer having auditory hallucinations. He did not make any delusional statements during conversation. Patient denies any side effects from medications. Continue current tx plan. Medication Compliance: Yes Side effects from medications: No Attending Groups: No Mental Status Exam Mental Status Exam Narrative: Pt is alert and oriented; behavior is cooperative and calm; dressed in casual attire; mood is described as sad , tearful; eye contact appropriate; Speech is normal rate, volume and not pressured; thought process is organized; Thought content is on tx; denies SI/HI/VH/AH. Diagnostics Vital Signs (24Hr): Vital Signs - 24 hr 10/29/24 19:35 10/30/24 07:41 Temperature 98.3 F 97.4 F Pulse Rate 108 H 70 Respiratory Rate 16 18 Blood Pressure 134/82 136/75 Pulse Oximetry 96 100 Oxygen Delivery Method Room Air Room Air BMI result Body Mass Index 19.3 Labs 10/26/24 09:09 10/29/24 08:44 Labs: Laboratory Results - last 48 hr 10/29/24 08:44 Sodium 139 Potassium 3.6 D Chloride 105 Carbon Dioxide 25 Anion Gap 13 BUN 14 Creatinine 1.22 Estim Creat Clear Calc 80.4 Estimated GFR > 60 Random Glucose 110 Estimat Average Glucose 114 Hemoglobin A1c % 5.6 Calcium 9.5 Total Bilirubin 1.4 H AST 40 H ALT 43 H Alkaline Phosphatase 65 Total Protein 7.4 Albumin 4.8 Triglycerides 57 Cholesterol 181 LDL Cholesterol, Calc 114 H HDL Cholesterol 56 Medications Medications Current Medications Acetaminophen (Acetaminophen 325 Mg Tablet) 650 mg PO Q6H PRN PRN Reason: Headache/Pain, Scale 1-10 Al Hydroxide/Mg Hydroxide (Magnesium Hydrox/Alum Hydrox 30 Ml Oral.Susp) 30 ml PO Q6H PRN PRN Reason: Heartburn/Nausea Divalproex Sodium (Divalproex Sodium Er 250 Mg Tab.Er.24h) 750 mg PO BEDTIME NATACHA Last Admin: 10/29/24 21:00 Dose: 750 mg Hydroxyzine HCl (Hydroxyzine Hcl 25 Mg Tablet) 25 mg PO Q6H PRN PRN Reason: mild anxiety Last Admin: 10/29/24 22:55 Dose: 25 mg Magnesium Hydroxide (Milk Of Magnesia 30 Ml Oral.Susp) 30 ml PO DAILY PRN PRN Reason: Constipation Nicotine Polacrilex (Nicotine Polacrilex 2 Mg Gum) 4 mg BUCCAL Q2H PRN PRN Reason: Nicotine Cravings Olanzapine (Olanzapine 5 Mg Tablet) 5 mg PO Q4H PRN PRN Reason: agitation Last Admin: 10/29/24 22:55 Dose: 5 mg Risperidone (Risperidone 1 Mg Tablet) 1 mg PO DAILY NATACHA Last Admin: 10/30/24 08:26 Dose: 1 mg Risperidone (Risperidone 2 Mg Tablet) 2 mg PO BEDTIME NATACHA Last Admin: 10/29/24 21:00 Dose: 2 mg Trazodone HCl (Trazodone Hcl 50 Mg Tablet) 50 mg PO BEDTIME MRX1 PRN PRN Reason: Insomnia Last Admin: 10/29/24 22:55 Dose: 50 mg Allergies Allergies Allergy/AdvReac Type Severity Reaction Status Date / Time No Known Allergies Allergy Verified 10/26/24 00:55 Assessment & Plan Assessment & Plan (1) Psychoactive substance-induced psychosis: Status: Acute Code(s): F19.959 - Other psychoactive substance use, unspecified with psychoactive substance-induced psychotic disorder, unspecified Plan Patient is a 19-year-old male who presented to [facility] [place] [facility] via ambulance after becoming aggressive with [employer] staff, which is uncharacteristic behavior for patient. Plan: CV 15 minute safety checks Start: Risperdal 1mg PO BID Obtain collateral Encourage groups Referral to outpatient psychiatric providers Discharge planning 10/28: Keeping to self. napping during the day. Guarded. Patient reports feeling alright ; he reports he has been keeping busy by reading the Bible. denies any side effects from starting Risperidal. denies SI/HI/VH/AH. Encouraged to attend groups. Continue current tx plan. 10/29: Patient reports feeling alright ; he does not believe he should be in the hospital; pt stated, I got a lot of things to do. 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 Patient reports he spoke with his grandmother and plans on staying with his mother in [place]. denies SI/HI/VH/AH. Pt reports he is no longer hearing God's voice. pt retracted 3 day notice. Start: Depakote ER 750mg PO bedtime; risks/benefits reviewed. Increase Risperidal to 2mg PO bedtime and 1mg PO daily. 10/30: Tearful. Patient reports feeling sad today; pt stated, I think I'm bipolar because I go from being happy then sad then angry. I understand you guys are trying to help me. I feel like I was going through an episode or I smoked the wrong thing . denies SI/HI/VH/AH. Pt reports he is no longer having auditory hallucinations. He did not make any delusional statements during conversation. Patient denies any side effects from medications. Continue current tx plan. Patient educated on: diagnosis and medication risk/benefits Reason for continued inpatient stay Substantial Risk for: med/psych decompensation Time Spent With Patient Time: Total time managing care of this patient today _20___ minutes.
[2024-10-30 20:00] VITALS: BP 146/73; PULSE 72; RESP 16; TEMP 36.8; O2SAT 100
[2024-10-30] MEDS: Divalproex Sodium ER 250 MG TAB.ER.24H 750 MG PO (20:11)
[2024-10-31 07:10] VITALS: BP 144/92; PULSE 68; RESP 20; TEMP 36.3; O2SAT 100
--- NOTE | 2024-10-31 07:50 | P.PNPSI_ITS ---
Subjective Subjective Date of Service: 10/31/24 Reason For Visit: Behavioral Subjective Notes: Conditional Voluntary Interim History: no management issues on the unit. Ongoing episcopal preoccupation and some grandiosity. Patient reports today that he feels well. Reports now being more focused on the prize referencing getting a job, starting a family. Is single. Describe what may have been a break-up prior to admission. Sleep okay. Denies feeling depressed. Reports feeling safe. No overt paranoia. Medication Compliance: Yes Side effects from medications: No Attending Groups: Yes Review of Systems Acute medical concerns: No Review of Systems Review of Systems Unremarkable Mental Status Exam Mental Status Exam Narrative: Pt is alert and oriented; behavior is cooperative and calm; dressed in casual attire; mood is described as good today , eye contact appropriate; Speech is normal rate, volume and not pressured; thought process is organized; Thought content is on tx; denies SI/HI/VH/AH. Diagnostics Vital Signs (24Hr): Vital Signs - 24 hr 10/30/24 20:00 10/31/24 07:10 Temperature 98.3 F 97.3 F Pulse Rate 72 68 Respiratory Rate 16 20 Blood Pressure 146/73 H 144/92 H Pulse Oximetry 100 100 Oxygen Delivery Method Room Air Room Air BMI result Body Mass Index 19.3 Labs 10/26/24 09:09 10/29/24 08:44 Labs: Laboratory Results - last 48 hr 10/29/24 08:44 Sodium 139 Potassium 3.6 D Chloride 105 Carbon Dioxide 25 Anion Gap 13 BUN 14 Creatinine 1.22 Estim Creat Clear Calc 80.4 Estimated GFR > 60 Random Glucose 110 Estimat Average Glucose 114 Hemoglobin A1c % 5.6 Calcium 9.5 Total Bilirubin 1.4 H AST 40 H ALT 43 H Alkaline Phosphatase 65 Total Protein 7.4 Albumin 4.8 Triglycerides 57 Cholesterol 181 LDL Cholesterol, Calc 114 H HDL Cholesterol 56 Medications Medications Current Medications Acetaminophen (Acetaminophen 325 Mg Tablet) 650 mg PO Q6H PRN PRN Reason: Headache/Pain, Scale 1-10 Al Hydroxide/Mg Hydroxide (Magnesium Hydrox/Alum Hydrox 30 Ml Oral.Susp) 30 ml PO Q6H PRN PRN Reason: Heartburn/Nausea Divalproex Sodium (Divalproex Sodium Er 250 Mg Tab.Er.24h) 750 mg PO BEDTIME NATACHA Last Admin: 10/30/24 20:11 Dose: 750 mg Hydroxyzine HCl (Hydroxyzine Hcl 25 Mg Tablet) 25 mg PO Q6H PRN PRN Reason: mild anxiety Last Admin: 10/29/24 22:55 Dose: 25 mg Magnesium Hydroxide (Milk Of Magnesia 30 Ml Oral.Susp) 30 ml PO DAILY PRN PRN Reason: Constipation Nicotine Polacrilex (Nicotine Polacrilex 2 Mg Gum) 4 mg BUCCAL Q2H PRN PRN Reason: Nicotine Cravings Olanzapine (Olanzapine 5 Mg Tablet) 5 mg PO Q4H PRN PRN Reason: agitation Last Admin: 10/30/24 20:11 Dose: 5 mg Risperidone (Risperidone 1 Mg Tablet) 1 mg PO DAILY NATACHA Last Admin: 10/30/24 08:26 Dose: 1 mg Risperidone (Risperidone 2 Mg Tablet) 2 mg PO BEDTIME NATACHA Last Admin: 10/30/24 20:12 Dose: 2 mg Trazodone HCl (Trazodone Hcl 50 Mg Tablet) 50 mg PO BEDTIME MRX1 PRN PRN Reason: Insomnia Last Admin: 10/30/24 20:11 Dose: 50 mg Allergies Allergies Allergy/AdvReac Type Severity Reaction Status Date / Time No Known Allergies Allergy Verified 10/26/24 00:55 Assessment & Plan Assessment & Plan (1) Psychoactive substance-induced psychosis: Status: Acute Code(s): F19.959 - Other psychoactive substance use, unspecified with psychoactive substance-induced psychotic disorder, unspecified Plan Patient is a 19-year-old male who presented to [facility] [place] [facility] via ambulance after becoming aggressive with [employer] staff, which is uncharacteristic behavior for patient. Plan: CV 15 minute safety checks Start: Risperdal 1mg PO BID Obtain collateral Encourage groups Referral to outpatient psychiatric providers Discharge planning 10/28: Keeping to self. napping during the day. Guarded. Patient reports feeling alright ; he reports he has been keeping busy by reading the Bible. denies any side effects from starting Risperidal. denies SI/HI/VH/AH. Encouraged to attend groups. Continue current tx plan. 10/29: Patient reports feeling alright ; he does not believe he should be in the hospital; pt stated, I got a lot of things to do. 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 Patient reports he spoke with his grandmother and plans on staying with his mother in [place]. denies SI/HI/VH/AH. Pt reports he is no longer hearing God's voice. pt retracted 3 day notice. Start: Depakote ER 750mg PO bedtime; risks/benefits reviewed. Increase Risperidal to 2mg PO bedtime and 1mg PO daily. 10/30: Tearful. Patient reports feeling sad today; pt stated, I think I'm bipolar because I go from being happy then sad then angry. I understand you guys are trying to help me. I feel like I was going through an episode or I smoked the wrong thing . denies SI/HI/VH/AH. Pt reports he is no longer having auditory hallucinations. He did not make any delusional statements during conversation. Patient denies any side effects from medications. Continue current tx plan. 10/31/2024: No changes to current regimen. Fresh air breaks today after staff discussion. Reason for continued inpatient stay Substantial Risk for: inability to function and rapid decompensation Time Spent With Patient Time: Total time managing care of this patient today ____ minutes.
[2024-10-31 20:00] VITALS: BP 145/80; PULSE 100; RESP 14; TEMP 36.9; O2SAT 100
[2024-10-31] MEDS: Divalproex Sodium ER 250 MG TAB.ER.24H 750 MG PO (20:13)
[2024-11-01 07:00] VITALS: BP 131/63; PULSE 89; RESP 16; TEMP 36.4; O2SAT 100
--- NOTE | 2024-11-01 10:25 | P.PNPSI_ITS ---
Subjective Subjective Date of Service: 11/01/24 Reason For Visit: Behavioral Interim History: No management issues on the unit. Sleep okay. Reports some increased stress today because he was talking with another patient who was having a lot of troubles and patient now feels very sad for them. Otherwise reports trying to take space for self and feels well. Sleep okay. Reports feeling safe. No overt paranoia. Medication Compliance: Yes Side effects from medications: No Attending Groups: Intermittent Review of Systems Acute medical concerns: No Review of Systems Review of Systems Unremarkable Mental Status Exam Mental Status Exam Narrative: Pt is alert and oriented; behavior is cooperative and calm; dressed in casual attire; mood is described as good , eye contact appropriate; Speech is normal rate, volume and not pressured; thought process is organized; Thought content is on tx; denies SI/HI/VH/AH. Diagnostics Vital Signs (24Hr): Vital Signs - 24 hr 10/31/24 20:00 11/01/24 07:00 Temperature 98.5 F 97.6 F Pulse Rate 100 89 Respiratory Rate 14 16 Blood Pressure 145/80 H 131/63 Pulse Oximetry 100 100 Oxygen Delivery Method Room Air Room Air BMI result Body Mass Index 19.3 Labs 10/26/24 09:09 10/29/24 08:44 Medications Medications Current Medications Acetaminophen (Acetaminophen 325 Mg Tablet) 650 mg PO Q6H PRN PRN Reason: Headache/Pain, Scale 1-10 Al Hydroxide/Mg Hydroxide (Magnesium Hydrox/Alum Hydrox 30 Ml Oral.Susp) 30 ml PO Q6H PRN PRN Reason: Heartburn/Nausea Divalproex Sodium (Divalproex Sodium Er 250 Mg Tab.Er.24h) 750 mg PO BEDTIME NATACHA Last Admin: 10/31/24 20:13 Dose: 750 mg Hydroxyzine HCl (Hydroxyzine Hcl 25 Mg Tablet) 25 mg PO Q6H PRN PRN Reason: mild anxiety Last Admin: 11/01/24 09:21 Dose: 25 mg Magnesium Hydroxide (Milk Of Magnesia 30 Ml Oral.Susp) 30 ml PO DAILY PRN PRN Reason: Constipation Nicotine Polacrilex (Nicotine Polacrilex 2 Mg Gum) 4 mg BUCCAL Q2H PRN PRN Reason: Nicotine Cravings Olanzapine (Olanzapine 5 Mg Tablet) 5 mg PO Q4H PRN PRN Reason: agitation Last Admin: 11/01/24 09:21 Dose: 5 mg Risperidone (Risperidone 1 Mg Tablet) 1 mg PO DAILY [facility] Last Admin: 11/01/24 08:37 Dose: 1 mg Risperidone (Risperidone 2 Mg Tablet) 2 mg PO BEDTIME NATACHA Last Admin: 10/31/24 20:14 Dose: 2 mg Trazodone HCl (Trazodone Hcl 50 Mg Tablet) 50 mg PO BEDTIME MRX1 PRN PRN Reason: Insomnia Last Admin: 10/31/24 20:13 Dose: 50 mg Allergies Allergies Allergy/AdvReac Type Severity Reaction Status Date / Time No Known Allergies Allergy Verified 10/26/24 00:55 Assessment & Plan Assessment & Plan (1) Psychoactive substance-induced psychosis: Status: Acute Code(s): F19.959 - Other psychoactive substance use, unspecified with psychoactive substance-induced psychotic disorder, unspecified Plan Patient is a 19-year-old male who presented to [facility] via ambulance after becoming aggressive with [employer] staff, which is uncharacteristic behavior for patient. Plan: CV 15 minute safety checks Start: Risperdal 1mg PO BID Obtain collateral Encourage groups Referral to outpatient psychiatric providers Discharge planning 10/28: Keeping to self. napping during the day. Guarded. Patient reports feeling alright ; he reports he has been keeping busy by reading the Bible. denies any side effects from starting Risperidal. denies SI/HI/VH/AH. Encouraged to attend groups. Continue current tx plan. 10/29: Patient reports feeling alright ; he does not believe he should be in the hospital; pt stated, I got a lot of things to do. 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 Patient reports he spoke with his grandmother and plans on staying with his mother in [place]. denies SI/HI/VH/AH. Pt reports he is no longer hearing God's voice. pt retracted 3 day notice. Start: Depakote ER 750mg PO bedtime; risks/benefits reviewed. Increase Risperidal to 2mg PO bedtime and 1mg PO daily. 10/30: Tearful. Patient reports feeling sad today; pt stated, I think I'm bipolar because I go from being happy then sad then angry. I understand you guys are trying to help me. I feel like I was going through an episode or I smoked the wrong thing . denies SI/HI/VH/AH. Pt reports he is no longer having auditory hallucinations. He did not make any delusional statements during conversation. Patient denies any side effects from medications. Continue current tx plan. 10/31/2024: No changes to current regimen. Fresh air breaks today after staff discussion. 11/01: no changes Reason for continued inpatient stay Substantial Risk for: rapid decompensation Time Spent With Patient Time: Total time managing care of this patient today ____ minutes.
[2024-11-01 19:28] VITALS: BP 135/72; PULSE 116; RESP 16; TEMP 36.5; O2SAT 100
[2024-11-01] MEDS: Divalproex Sodium ER 250 MG TAB.ER.24H 750 MG PO (19:57)
[2024-11-02 07:36] VITALS: BP 132/81; PULSE 107; RESP 12; TEMP 36.3; O2SAT 100
[2024-11-02 09:36] LABS: Ammonia 37 umol/L (13-55)
[2024-11-02 09:44] LABS: Alanine Aminotransferase 32 U/L (0-40); Albumin Level 5.0 g/dL (3.5-5.0); Alkaline Phosphatase 64 U/L (39-117); Aspartate Amino Transferase 16 U/L (5-37); Total Protein 7.5 g/dL (6.5-8.0)
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
[2024-11-02 20:00] VITALS: BP 143/71; PULSE 105; RESP 14; TEMP 37.1; O2SAT 98
[2024-11-02] MEDS: Divalproex Sodium ER 250 MG TAB.ER.24H 750 MG PO (20:07)
[2024-11-03 07:28] VITALS: BP 136/76; PULSE 70; RESP 18; TEMP 36.8; O2SAT 100
--- NOTE | 2024-11-03 09:28 | P.PNPSI_ITS ---
Subjective Subjective Date of Service: 11/03/24 Reason For Visit: Behavioral Subjective Notes: Conditional Voluntary Interim History: Patient reports feeling good ; pt stated, I feel like the meds are helping me . He is focused on discharge. Patient stated, My friend is picking me up and driving me to [place]. I plan on staying with one of my friends when I get there and working for his [employer] business. I want to save up and get my own place . denies SI/HI/VH/AH. Patient reports he plans on obtaining psychiatric providers when he arrives to [place]. Medication Compliance: Yes Side effects from medications: No Attending Groups: Yes Mental Status Exam Mental Status Exam Narrative: Pt is alert and oriented; behavior is cooperative and calm; dressed in casual attire; mood is described as good ; eye contact appropriate; Speech is normal rate, volume and not pressured; thought process is organized and goal directed; Thought content is on discharge; denies SI/HI/VH/AH. Diagnostics Vital Signs (24Hr): Vital Signs - 24 hr 11/02/24 20:00 11/03/24 07:28 Temperature 98.7 F 98.2 F Pulse Rate 105 H 70 Respiratory Rate 14 18 Blood Pressure 143/71 H 136/76 Pulse Oximetry 98 100 Oxygen Delivery Method Room Air Room Air BMI result Body Mass Index 19.3 Labs 10/26/24 09:09 10/29/24 08:44 Labs: Laboratory Results - last 48 hr 11/02/24 09:15 Total Bilirubin 0.5 Direct Bilirubin 0.2 AST 16 ALT 32 Alkaline Phosphatase 64 Ammonia 37 Total Protein 7.5 Albumin 5.0 Valproic Acid 80.7 Medications Medications Current Medications Acetaminophen (Acetaminophen 325 Mg Tablet) 650 mg PO Q6H PRN PRN Reason: Headache/Pain, Scale 1-10 Al Hydroxide/Mg Hydroxide (Magnesium Hydrox/Alum Hydrox 30 Ml Oral.Susp) 30 ml PO Q6H PRN PRN Reason: Heartburn/Nausea Bisacodyl (Bisacodyl 5 Mg Tablet.Dr) 10 mg PO BEDTIME PRN PRN Reason: Constipation Last Admin: 11/02/24 20:50 Dose: 10 mg Divalproex Sodium (Divalproex Sodium Er 250 Mg Tab.Er.24h) 750 mg PO BEDTIME NATACHA Last Admin: 11/02/24 20:07 Dose: 750 mg Hydroxyzine HCl (Hydroxyzine Hcl 50 Mg Tablet) 50 mg PO Q6H PRN PRN Reason: mild anxiety Last Admin: 11/02/24 20:07 Dose: 50 mg Magnesium Hydroxide (Milk Of Magnesia 30 Ml Oral.Susp) 30 ml PO DAILY PRN PRN Reason: Constipation Nicotine Polacrilex (Nicotine Polacrilex 2 Mg Gum) 4 mg BUCCAL Q2H PRN PRN Reason: Nicotine Cravings Olanzapine (Olanzapine 5 Mg Tablet) 5 mg PO Q4H PRN PRN Reason: agitation Last Admin: 11/02/24 19:34 Dose: 5 mg Risperidone (Risperidone 1 Mg Tablet) 1 mg PO DAILY NATACHA Last Admin: 11/03/24 08:44 Dose: 1 mg Risperidone (Risperidone 2 Mg Tablet) 2 mg PO BEDTIME NATACHA Last Admin: 11/02/24 20:08 Dose: 2 mg Trazodone HCl (Trazodone Hcl 50 Mg Tablet) 50 mg PO BEDTIME MRX1 PRN PRN Reason: Insomnia Last Admin: 11/02/24 20:08 Dose: 50 mg Allergies Allergies Allergy/AdvReac Type Severity Reaction Status Date / Time No Known Allergies Allergy Verified 10/26/24 00:55 Assessment & Plan Assessment & Plan (1) Bipolar 2 disorder: Status: Acute Code(s): F31.81 - Bipolar II disorder Plan Patient is a 19-year-old male who presented to [facility] via ambulance after becoming aggressive with [facility] [employer] staff, which is uncharacteristic behavior for patient. Plan: CV 15 minute safety checks Start: Risperdal 1mg PO BID Obtain collateral Encourage groups Referral to outpatient psychiatric providers Discharge planning 10/28: Keeping to self. napping during the day. Guarded. Patient reports feeling alright ; he reports he has been keeping busy by reading the Bible. denies any side effects from starting Risperidal. denies SI/HI/VH/AH. Encouraged to attend groups. Continue current tx plan. 10/29: Patient reports feeling alright ; he does not believe he should be in the hospital; pt stated, I got a lot of things to do. 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 Patient reports he spoke with his grandmother and plans on staying with his mother in [place]. denies SI/HI/VH/AH. Pt reports he is no longer hearing God's voice. pt retracted 3 day notice. Start: Depakote ER 750mg PO bedtime; risks/benefits reviewed. Increase Risperidal to 2mg PO bedtime and 1mg PO daily. 10/30: Tearful. Patient reports feeling sad today; pt stated, I think I'm bipolar because I go from being happy then sad then angry. I understand you guys are trying to help me. I feel like I was going through an episode or I smoked the wrong thing . denies SI/HI/VH/AH. Pt reports he is no longer having auditory hallucinations. He did not make any delusional statements during conversation. Patient denies any side effects from medications. Continue current tx plan. 10/31/2024: No changes to current regimen. Fresh air breaks today after staff discussion. 11/01: no changes 11/02: Active on unit. attending groups. Patient reports feeling better ; he is focused on discharge. Patient stated, my grandmother said I can't stay with her so I think I'm going to go to [place] and stay with one of my friends . Patient reports he plans on being medication compliant when discharged. Valproic acid level 80.7 on 11/02/24. denies SI/HI/VH/AH. Plan to discharge this week, if continues to improve; pt aware. Continue current tx plan. 11/03:Patient reports feeling good ; pt stated, I feel like the meds are helping me . He is focused on discharge. Patient stated, My friend is picking me up and driving me to [place]. I plan on staying with one of my friends when I get there and working for his [employer] business. I want to save up and get my own place . denies SI/HI/VH/AH. Patient reports he plans on obtaining psychiatric providers when he arrives to [place]. Patient educated on: diagnosis and medication risk/benefits Reason for continued inpatient stay Substantial Risk for: stable for discharge Time Spent With Patient Time: Total time managing care of this patient today _20___ minutes.
[2024-11-03 20:00] VITALS: BP 134/68; PULSE 83; RESP 16; TEMP 36.9; O2SAT 99
[2024-11-03] MEDS: Divalproex Sodium ER 250 MG TAB.ER.24H 750 MG PO (20:01)
[2024-11-04 07:42] VITALS: BP 126/66; PULSE 90; RESP 16; TEMP 37; O2SAT 95
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
== END 2024-11-04 08:22 | disposition home or self-care (01) | DRG 753 ==
LOC: HO.ED 12:00 → HO.PADLT16 10-27 13:12
PROVIDERS: Emergency Medicine; Admitting Provider Registered Nurse; Emergency Provider Emergency Medicine; Responsible Provider Registered Nurse; Visit Provider Psychiatry & Neurology Psychiatry
DX: F31.81 Bipolar II disorder (principal); F19.959 Other psychoactive substance use, unspecified with psychoactive substance-induced psychotic disorder, unspecified
CPT/HCPCS: 36415; 80048; 80053; 80061; 80076; 80164; 80307; 81001; 82140; 83036; 85025; 99285; S9485

== ENCOUNTER → 2024-10-27 13:07 | Outpatient (BNV) | payer OTHER, SELFPAY | PROVIDERS: Admitting Provider Registered Nurse; Emergency Provider Emergency Medicine; Responsible Provider Registered Nurse; Visit Provider Registered Nurse | DX: F19.959 Other psychoactive substance use, unspecified with psychoactive substance-induced psychotic disorder, unspecified (principal) | CPT/HCPCS: 99231; 99232; 99233 ==